=== PATIENT | female | born 1970 | race Caucasian/White ===

== ENCOUNTER → 2017-10-12 12:50 | Outpatient (CLI) | payer MEDICAID ==
[2014-06-08 07:43] VITALS: BMI 19.1
[~2017-10-12 12:50] MED LIST: HYDROCODONE-APA1 TAB PO; NAPRELAN375 MG PO
--- NOTE | 2017-10-21 15:46 | EC ---
PATIENT:ESTELLA RAIN DATE OF SERVICE: 10/12/17 SEX: F MEDICAL RECORD: [id number] DATE OF : 66 LOCATION[facility] AGE OF PATIENT: 47 ADMISSION DATE: 10/12/17 REFERRING PHYSICIAN: INTERPRETING PHYSICIAN: SHANKAR MCNEIL MD ECHOCARDIOGRAM REPORT ECHO CHARGES 4 ECHO COMPLETE CLINICAL DIAGNOSIS: LUNG CANCER/HTN ECHOCARDIOGRAPHIC MEASUREMENTS (adult normal given) AC root (d.<3.7cm) 3.0 cm LV Septum d (<1.2 cm> 1.5 cm Valve Excursion 2.0 cm LV Septum (systole) 1.8 cm Left Atria (s.<4.0cm> 3.2 cm LVPW d(<1.2cm) 1.3 cm RV (d.<2.3cm) 2.3 cm LVPW (sytole) 2.0 cm LV diastole(<5.6CM) 4.2 cm MV E-F(>70mm/sec) cm LV systole 1.9 cm LVOT Diameter 1.6 cm MV exc.(>10mm) cm Est.ejection fraction (50-75%) % Pericardial Effusion Y DOPPLER: LVIT cm/sec A 91.0 cm/sec E 50.0 cm/sec LA cm/sec RVSP 35.0 mmHg LVOT 120 cm/sec AOP1/2T m/s Asc. Ao 149 cm/sec RVOT 64.0 cm/sec RA cm/sec PA 117 cm/sec AV Gradient Peak 8.8 mmHg AV Mean 3.9 mmHg AV Area 1.6 cm MV Gradient Peak 3.3 mmHg MV Mean 1.2 mmHg MV Area cm COMMENTS: Wireless Internet Installer: 1 [employer] Officer: 1 Dr. Mcneil TAPE# PACS DATE OF SERVICE: 10/12/2017 FINDINGS: 1. Left ventricular chamber size is within normal limits. Left ventricular systolic function is normal. Overall ejection fraction estimated at 55%. 2. Left atrium, right atrium, and right ventricle chamber sizes are within normal limits. 3. Valvular structures have normal structure and motion. 4. Doppler interrogation reveals only trace mitral regurgitation, trace tricuspid regurgitation. No other valvular insufficiency or stenosis. ECHOCARDIOGRAM REPORT [id number] ESTELLA RAIN 5. No evidence of pericardial effusion or left ventricular thrombus. TRANSINT:[id number] Voice Confirmation ID: [id number] DOCUMENT ID: [id number] SHANKAR MCNEIL MD at 1546 CC: [id number] DICTATION DATE: 10/13/17 1129 COMMERCIAL LENDING ASSISTANT: 10/13/17 1140 DEP CLI 10/12/17 [place] [id number] [place] [id number]
== END | disposition home or self-care (01) ==
LOC: D.RT 09:00 → D.ECHO 10:35
DX: C34.90 Malignant neoplasm of unspecified part of unspecified bronchus or lung (principal); I10 Essential (primary) hypertension

== ENCOUNTER → 2018-01-04 17:46 | Outpatient (CLI) | payer MEDICAID ==
[2014-06-08 07:43] VITALS: BMI 19.1
== END | disposition home or self-care (01) ==
LOC: D.MAMMO 15:15
DX: Z12.31 Encounter for screening mammogram for malignant neoplasm of breast (principal)

== ENCOUNTER → 2018-09-02 12:26 | Outpatient (CLI) | payer MEDICAID ==
[2014-06-08 07:43] VITALS: BMI 19.1
== END | disposition home or self-care (01) ==
LOC: D.MRI 12:00
DX: C34.12 Malignant neoplasm of upper lobe, left bronchus or lung (principal); T50.995A Adverse effect of other drugs, medicaments and biological substances, initial encounter

== ENCOUNTER 2019-10-17 23:24 | Inpatient (IN) | payer MEDICAID ==
[~2019-10-17] VITALS: Ht 165.1 cm; Wt 50.3 kg
[2019-10-17 23:57] LABS: HEMATOCRIT 41.5 % (36.0-48.0); MCH 24.9 pg (26.0-34.0); MCHC 31.3 g/dL (31.0-37.0); MCV 79.5 fL (80.0-100.0); MEAN PLATELET VOLUME 8.9 fL (7.4-10.4); NEUTROPHILS 86.5 % (40-80); RBC 5.22 10x6/uL (4.00-5.40); RDW 15.8 % (11.5-14.5); WBC 18.2 10x3/uL (4.8-10.8)
[2019-10-17 23:58] LABS: PLATELET COUNT 499 10x3/uL (130-400)
--- NOTE | 2019-10-18 00:23 | NUR ---
PT ASSISTED WITH BEDPAN. URINE SPECIMEN SENT TO LAB
[2019-10-18 00:31] LABS: ALBUMIN 3.3 g/dL (3.4-5.0); ALKALINE PHOSPHATASE 131 U/L (46-116); ALT (SGPT) 30 U/L (10-68); AMYLASE - SERUM 52 U/L (25-115); BILIRUBIN - TOTAL 0.39 mg/dL (0.2-1.3); CALCIUM 9.4 mg/dL (8.5-10.1); CARBON DIOXIDE 33.8 mmol/L (21.0-32.0); CHLORIDE - SERUM 99 mmol/L (98-107); CKMB 1.2 U/L (0.0-3.6); CREATINE KINASE 43 UL (21-215); CREATININE - SERUM 0.8 mg/dL (0.6-1.3); GLUCOSE 148 mg/dL (74-106); LIPASE 166 U/L (73-393); MAGNESIUM - SERUM 2.1 mg/dL (1.8-2.4); POTASSIUM - SERUM 3.5 mmol/L (3.5-5.1); PROTEIN - SERUM 8.5 g/dL (6.4-8.2); SODIUM 140 mmol/L (136-145); eGFR NON AFRICAN AMERICAN 80 mL/min (90-120)
[2019-10-18 00:32] LABS: CALC OSMOLALITY 288 mosm/kg (275-300); TROPONIN-I < 0.017 ng/mL (0.000-0.060); UREA NITROGEN 31 mg/dL (7-18)
[2019-10-18 00:38] LABS: UDS - AMPHET POSITIVE QUAL (NEGATIVE); UDS - BARB NEGATIVE QUAL (NEGATIVE); UDS - BENZO NEGATIVE QUAL (NEGATIVE); UDS - COCAINE POSITIVE QUAL (NEGATIVE); UDS - OPIATE NEGATIVE QUAL (NEGATIVE); UDS - PCP NEGATIVE QUAL (NEGATIVE); UDS - THC POSITIVE QUAL (NEGATIVE)
[2019-10-18 00:40] LABS: APPEARANCE CLEAR (CLEAR); BILIRUBIN NEGATIVE (NEGATIVE); COLOR YELLOW (YELLOW); GLUCOSE NEGATIVE (NEGATIVE); KETONE NEGATIVE (NEGATIVE); NITRITE NEGATIVE (NEGATIVE); PROTEIN NEGATIVE (NEGATIVE); SPECIFIC GRAVITY 1.015 (1.005-1.020); UROBILINOGEN NORMAL (NORMAL)
[2019-10-18 00:41] LABS: BACTERIA FEW /hpf (NEGATIVE); EPITHELIAL CELLS 0-5 /hpf (0-5); RED CELLS - URINE 0-5 /hpf (0-5); WHITE CELLS - URINE 0-5 /hpf (NEGATIVE)
--- NOTE | 2019-10-18 02:10 | NUR ---
RECIEVED REPORT FROM ORLANDO MENJIVAR. PT ARRIVE BY BED. VSS, AAOX4, PT APPEARS TO NAUSEATED, WITH FREQUENT VOMITING. EMESIS BAG PROVIDED. PT PLACED ON TELEMETRY, 100 SINUS TACH, PT IS BEDFAST AT THIS TIME. STATES SHE USES WHEELCHAIR @ HOME. IV METRONIDAZOLE INFUSING ON ARRIVAL TO THE UNIT. NS INFUSING @ 75. PT IS A GOOD HISTORIAN. PT DENIES ANY FURTHER NEEDS AT THIS TIME. WILL CPOC. CL WITHIN REACH, BED IN LOWEST POSITION, SR UP X2.
[2019-10-18 02:14] VITALS: BP 117/87; BMI 18.5
--- NOTE | 2019-10-18 02:51 | NUR ---
ER NURSE TIARA CALLED AND READ RESULT OF CT OF THE ABD. CALLED AND NOTIFIED OSMANY PRICE ABOUT RESULT AND IF TO START NASOGATRIC SUCTION OR NOT. HE STATES TO CPOC AND WAIT ON DR. GARRETT FOR THE NEXT POC. PT STILL NAUSEATED AT THIS TIME. ZOFRAN INFUSING AT 4.7MLS/HR. LEVOFLOXACIN ALSO INFUSING AT THIS TIME. WILL CPOC.
--- NOTE | 2019-10-18 02:56 | NUR ---
TIARA PERRY CALLED AND STATED THAT DR. MCKEE SPOKE WITH DR. GARRETT AND DR GARRETT STATES TO PLACE PT ON NG TUBE WITH LOW INTERMITTENT SUCTION.
--- NOTE | 2019-10-18 03:45 | NUR ---
NG TUBE PLACED. ORDERED ABD X-RAY FOR NG TUBE PLACEMENT.
--- NOTE | 2019-10-18 03:46 | NUR ---
NG-TUBE PLACE VIA RIGHT NOSTRIL. PT TOLERATE MODERATELY NOT S/S OF BLEEDING NOTED. ABDOMINAL AUSCULTATION PERFORMED. NG-TUBE SECURED WITH TAPE ON PT'S NOSE.
[2019-10-18 05:00] LABS: BASOPHILS 0.1 % (0-2); EOSINOPHILS 0.7 % (0-7); HEMATOCRIT 36.3 % (36.0-48.0); HEMOGLOBIN 11.6 g/dL (12-16); IMMATURE GRANULOCYTES 0.3 % (0-5); LYMPHOCYTES 10.8 % (15-50); MCH 25.3 pg (26.0-34.0); MCV 79.3 fL (80.0-100.0); MONOCYTES 7.2 % (2-11); NEUTROPHILS 80.9 % (40-80); PLATELET COUNT 430 10x3/uL (130-400); RBC 4.58 10x6/uL (4.00-5.40); RDW 15.8 % (11.5-14.5)
[2019-10-18 05:08] LABS: WBC 13.4 10x3/uL (4.8-10.8)
[2019-10-18 05:17] LABS: CALC OSMOLALITY 289 mosm/kg (275-300); CALCIUM 8.3 mg/dL (8.5-10.1); CARBON DIOXIDE 31.6 mmol/L (21.0-32.0); CHLORIDE - SERUM 103 mmol/L (98-107); CREATININE - SERUM 0.8 mg/dL (0.6-1.3); GLUCOSE 175 mg/dL (74-106); PHOSPHOROUS 3.2 mg/dL (2.5-4.9); POTASSIUM - SERUM 3.3 mmol/L (3.5-5.1); SODIUM 141 mmol/L (136-145); UREA NITROGEN 27 mg/dL (7-18); eGFR NON AFRICAN AMERICAN 80 mL/min (90-120)
--- NOTE | 2019-10-18 05:17 | NUR ---
RECIEVED REPORT FROM RADIOLOGY THAT NG TUBE IS AT THE GASTROESOPHAGEAL JUNCTION. CALLED AND NOTIFIED DEE ZARAGOZA PT'S LACK OF TOLERANCE TO NG TUBE AND ALSO ABOUT LOCATION OF NG-TUBE. HE STATES TO PUSH 3-4ML FURTHER AND ENCOURAGE PT TO KEEP THE NG-TUBE. PT PLACED ON BED RODGERS AT THIS TIME. BM IS SCANTY DIARRHEA, PT STATES SHE IS STRAINING BUT NOTHING IS COMING OUT AND HER STOMACH HURTS.
--- NOTE | 2019-10-18 07:20 | NUR ---
RECIEVE REPORT. ALERT AND ORIENTED X4. SITTING UP IN BED. NG TUBE HOOKED TO INTERMITTENT LOW WALL SUCTION. SECRETIONS CLOUDY YELLOW. DENIES ANY NEEDS AT THIS TIME. CONTINUE PLAN OF CARE AND SAFETY PRECAUTIONS.
[2019-10-18 08:16] VITALS: BP 97/67
[2019-10-18 11:01] VITALS: Ht 165.1 cm; Wt 50.3 kg
[2019-10-18 12:11] VITALS: BP 117/82
--- NOTE | 2019-10-18 14:00 | NUR ---
ALERT AND ORIENTED X4. DEMANDING NG TUBE TO BE REMOVED. PATIENT STATES,"IF YOU AREN'T GOING TO GIVE ME ANYTHING ELSE FOR PAIN AND SOMETHING TO EAT THEN I'M LEAVING." EXPLAIN WAITING FOR MEDICATION TO TAKE AFFECT FOR BOWEL MOVEMENT. PATIENT STATES, "I KNOW BUT I CAN HURT AT HOME." EXPLAIN DOCTORS WILL NOT DISCHARGE AND LEAVING AMA INSURANCE WILL NOT PAY. PATIENT STATES, "I KNOW AND I DON'T CARE GIVE ME THE PAPERS TO SIGN, I'M LEAVING." DC NGT TUBE TIP INTACT. FLUSH RT CHEST IP. DC RT CHEST IP TIP INTACT. TAKEN TO ER ENTERANCE TO WAIT FOR CARD DOFFER. AMA PAPERS SIGNED ON CHART. OSMANY GRANT AND NOTIFIED BEFORE LEAVING UNIT.
--- NOTE | 2019-10-18 17:02 | MORECARE ---
CASE MANAGEMENT DISCHARGE SUMMARY PATIENT: ESTELLA RAIN UNIT: [id number] ADM DATE: 10/18/19 AGE: 49 : 66 SEX: F ROOM/BED: D.2587 AUTHOR: TALIA HOOKER PHYSICIAN: REFERRING PHYSICIAN: ARJUN MILTON MD DATE OF SERVICE: 10/18/19 Discharge Plan Patient Name: ESTELLA RAIN Facility: [facility]:[place] : 1970 Planned Disposition: Left Against Medical Advice Anticipated Discharge Date: 10/18/19 Discharge Date: 10/18/2019 Expected LOS: 1 Initial Reviewer: [email or web address] Initial Review Date: 10/18/2019 Generated: 10/18/19 6:01 pm Patient Name: ESTELLA RAIN Page [id number] at 1702 All edits/amendments must be made on the electronic document DICTATION DATE: 10/18/191700 OPERATIONS SUPERINTENDENT: CARLOS EDUARDO 10/18/191700 RPT#: [id number] DC DATE:10/18/19 STATUS: DIS IN [facility] [address] [place] [address] END OF REPORT
== END 2019-10-18 14:10 | disposition left against medical advice (07) | DRG 815 ==
LOC: D.ER 23:24 → D.M2 10-18 01:18 → OBSVTIME 10-18 01:18 → D.M2 10-18 10:57
PROVIDERS: Family Medicine; ADMIT Internal Medicine Nephrology; ATTEND Internal Medicine Nephrology
DX: D72.829 Elevated white blood cell count, unspecified (principal); C34.90 Malignant neoplasm of unspecified part of unspecified bronchus or lung; N17.9 Acute kidney failure, unspecified; F17.213 Nicotine dependence, cigarettes, with withdrawal; R10.9 Unspecified abdominal pain; D64.9 Anemia, unspecified; E87.6 Hypokalemia; F19.10 Other psychoactive substance abuse, uncomplicated

== ENCOUNTER 2020-06-10 08:45 | Inpatient (IN) | payer MEDICAID ==
[~2020-06-10] VITALS: Ht 165.1 cm; Wt 44.5 kg
[2020-06-10] VITALS (15 sets, daily range): BP systolic 76–124; BP diastolic 36–86; Ht 165.1 cm; Wt 44.5 kg
--- NOTE | 2020-06-10 09:20 | NUR ---
PT REFUSED IV, BUT DID LET US GET ONE AND STATED "GET BLOOD WITH IT" SHE ALSO REFUSED TO BE INTUBATED BY DR VALDIVIA STATED "I DON'T WANT IT" SHE WAS TOLD IT WAS LIFE OR AND STILL REFUSED. PHONE CALL TO TRY AND REACH CHILDREN IN PROCESS.
--- NOTE | 2020-06-10 09:40 | NUR ---
PT MOVED TO ROOM 1 FOR NEG PRESSURE.
--- NOTE | 2020-06-10 09:41 | NUR ---
SPOKE TO SISTER, SHE IS ON HER WAY UP HERE TO TALK TO PATIENT AND LET HER KNOW JUST HOW SICK SHE IS.
[2020-06-10 10:06] LABS: CALC OSMOLALITY 284 mosm/kg (275-300); CALCIUM 8.8 mg/dL (8.5-10.1); CARBON DIOXIDE 32.7 mmol/L (21.0-32.0); CHLORIDE - SERUM 103 mmol/L (98-107); CREATININE - SERUM 0.5 mg/dL (0.6-1.3); GLUCOSE 164 mg/dL (74-106); POTASSIUM - SERUM 4.1 mmol/L (3.5-5.1); SODIUM 139 mmol/L (136-145); UREA NITROGEN 21 mg/dL (7-18); eGFR NON AFRICAN AMERICAN > 90 mL/min (90-120)
[2020-06-10 10:07] LABS: BASOPHILS 0.2 % (0-2); EOSINOPHILS 0.7 % (0-7); HEMATOCRIT 37.4 % (36.0-48.0); IMMATURE GRANULOCYTES 0.3 % (0-5); LYMPHOCYTES 6.6 % (15-50); MCH 28.8 pg (26.0-34.0); MCHC 32.1 g/dL (31.0-37.0); MCV 89.9 fL (80.0-100.0); MEAN PLATELET VOLUME 9.1 fL (7.4-10.4); MONOCYTES 7.1 % (2-11); NEUTROPHILS 85.1 % (40-80); PLATELET COUNT 343 10x3/uL (130-400); RBC 4.16 10x6/uL (4.00-5.40); RDW 13.9 % (11.5-14.5); WBC 14.9 10x3/uL (4.8-10.8)
--- NOTE | 2020-06-10 10:10 | NUR ---
PT REFUSED TO LET RESPIRATORY PUT BI PAP ON HER SHE DOES NOT WANT IT. NON REBREATHER STILL IN PLACE O2 SAT AT 99% ON 15 LITERS.
[2020-06-10 10:22] LABS: ALBUMIN 2.5 g/dL (3.4-5.0); ALKALINE PHOSPHATASE 106 U/L (30-120); ALT (SGPT) 19 U/L (10-68); BILIRUBIN - TOTAL 0.17 mg/dL (0.2-1.3); CKMB 5.6 U/L (0.0-3.6); CREATINE KINASE 84 UL (21-215); PROTEIN - SERUM 7.2 g/dL (6.4-8.2)
[2020-06-10 10:23] LABS: TROPONIN-I < 0.017 ng/mL (0.000-0.060)
--- NOTE | 2020-06-10 10:31 | NUR ---
PT HAS REFUSED TO WEAR THE NON REBREATHER EVEN THOUGH I TOLD HER HER OXYGEN WAS MUCH BETTER AT 96-00% ON THE NON REBREATHER, SHE WANTS A NASAL CANNULA SO RESPIRATORY PUT HER ON HIGH FLOW NC AND HER SATS ARE NOW SITTING IN THE 85-87% RANGE. SHE STILL REFUSES TO DO ANYTHING ELSE OR GIVE URINE OR HAVE CATHETER FOR IN AND OUT USE.
--- NOTE | 2020-06-10 10:42 | NUR ---
WENT TO CHECK ON PT SHE IS LETHARGIC I PUT HER BACK ON THE NON REBREATHER AND CALLED RESPIRATORY TO SEE IF WE CAN GET HER ON THE BIPAP NOW. hER SAT WAS 80% SHE IS UP TO 96% ON THE NRB MASK. UNABLE TO OBTAIN DNR STATUS FROM PATIENT. VS RECORDED IN CHART.
--- NOTE | 2020-06-10 10:54 | NUR ---
SISTER IS AT THE BEDSIDE PT IS UNRESPONSIVE, DR VALDIVIA AT BEDSIDE PT IS CHEYNNE FLEMING BREATHING, O2 SAT AT 97% WE HAVE PUT HER ON THE BIPAP WITH RESPIRATORY AT BEDSIDE WELL. SHE IS TOLERATING WELL AND STILL UNRESPONSIVE. DR VALDIVIA IS DISCUSSING SITUATION WITH HER SISTER WHILE DR GUY JUST WALKED INTO THE ROOM WELL.
[2020-06-10 10:56] LABS: APTT 24.1 SECONDS (22.8-39.4); INR 1.05 (0.85-1.17); PROTIME 13.7 SECONDS (11.6-15.0)
--- NOTE | 2020-06-10 11:34 | NUR ---
SISTER AT BEDSIDE RESPIRATORY IN ROOM DOING ANOTHER SET OF ABG'S, PT IS STILL UNRESPONSIVE AND RADU FLEMING BREATHING PATTERN, O2 SAT AT 94-95% BP 84/36.
--- NOTE | 2020-06-10 12:25 | NUR ---
LEVOPHED INCREASED TO 6MCG/HR, BP 96/42.
--- NOTE | 2020-06-10 12:39 | NUR ---
INCREASED LEVOPHED UP TO 7MCG/HR BP 103/40
--- NOTE | 2020-06-10 12:53 | NUR ---
LEVOPHED INCREASED TO 8MCG/HR BP 76/49
--- NOTE | 2020-06-10 13:12 | NUR ---
PER ORDER FROM DR VALDIVIA TITRATE LEVOPHED BY 2MCG EVERY 5 MIN TO GET MAP TO 60. INCREASED FRO M8MCG TO 10MCG BLOOD PRESSURE AT 86/43
--- NOTE | 2020-06-10 13:40 | NUR ---
PER SHANKAR BATEMAN, HE UPPED HER LEVOPHED TO 15MCG/HR, AND STARTED HER NEXT BOLUS.BP 89/56
--- NOTE | 2020-06-10 13:52 | NUR ---
REPORTED UPDATED STATUS TO DR GUY, HE STATED HE WROTE ORDER FOR SOLUMEDROL AND ANOTHER MDI. NOTED
--- NOTE | 2020-06-10 14:40 | NUR ---
RECEIVED PT FROM ER VIA STRETCHER TO ROOM 2314 DUE TO COVID PUI. PT ALERT ENOUGH TO ANSWER QUESTIONS APPROPRIATELY, PT STATES "DO NOT INTUBATE ME", PT ALSO STATES "I WANT TO AT HOME, LET ME AT HOME" NOTIFIED OF WHAT PT SAID. THEN SPOKE WITH PT AND PT IS NOW HOSPICE. WILL CONT TO MONITOR.
--- NOTE | 2020-06-10 15:00 | NUR ---
GABRIEL INSERTED. NO ACUTE NEEDS OR DISTRESS NOTED AT THIS TIME.
--- NOTE | 2020-06-10 15:15 | NUR ---
PT RIPPED OFF BIPAP AND SAID "GET THIS OFF OF ME, LET ME GO HOME AND " PUT PT ON NONR AT 13L SATING 96%. PT ALERT ENOUGH TO PUT MASK ON AND TAKE MASK OFF WHEN INSTRUCTED TO DO SO.
--- NOTE | 2020-06-10 16:56 | MORECARE ---
CASE MANAGEMENT DISCHARGE SUMMARY PATIENT: ESTELLA RAIN UNIT: [id number] ADM DATE: 06/10/20 AGE: 50 : 66 SEX: F ROOM/BED: D.2314 AUTHOR: TALIA HOOKER PHYSICIAN: REFERRING PHYSICIAN: ADOLFO GUY DO DATE OF SERVICE: 06/10/20 Discharge Plan Patient Name: ESTELLA RAIN Facility: [facility]:[place] : 1970 Planned Disposition: Anticipated Discharge Date: Discharge Date: Expected LOS: Initial Reviewer: [email or web address] Initial Review Date: 06/10/2020 Generated: 06/10/20 5:55 pm Comments DCP- Discharge Planning Updated by [email or web address]: Tayla Howard on 06/10/20 3:[address] CM WAS ASKED TO SET UP HOSPICE FOR PT. BENJAMIN KOLB STATED THAT THE PATIENT IS REQUESTING TO GO HOME AND WITH HOSPICE. CM ASKED WHAT COMPANY PATIENT WOULD LIKE TO USE. CM CALLED [facility] AND SPOKE WITH THE ONCALL NURSE TERRI. CM PROVIDED CLINICAL UPDATE AND PRINTED OUT CLINICALS PER REQUEST. CM PROVIDED UPDATE TO RN AND DR GUY. CM WILL CONTINUE TO ASSIST NEEDED. TAYLA HOWARD MSN,RN,CM External Providers External Provider: [facility] Next Contact Date: Service Request Date: Service Type: Resolution: Reviewer: Comments: Patient Name: ESTELLA RAIN Page [phone] at 1656 All edits/amendments must be made on the electronic document DICTATION DATE: 06/10/201654 CHIEF INSPECTOR: CARLOS EDUARDO 06/10/20 165 RPT#: [id number] DC DATE: STATUS: ADM IN [facility] [address] [place] [address] END OF REPORT
--- NOTE | 2020-06-10 17:00 | NUR ---
SPOKE WITH JOSS FROM [facility], UPDATE GIVEN. WILL CONT TO MONITOR.
--- NOTE | 2020-06-10 17:29 | NUR ---
ON THE PHONE WITH SUNITA MENSAH, GIVEN UPDATE. PT GOING ON HOSPICE AND WILL BE GOING HOME TOMORROW ON HOSPICE. WILL TRANFER PT TO THE FLOOR. WILL CONT TO MONITOR.
--- NOTE | 2020-06-10 18:24 | NUR ---
PT COVID NEGATIVE.
--- NOTE | 2020-06-10 18:51 | NUR ---
PT HAS VERBALIZED MANY TIMES THAT SHE WISHES TO LEAVE AND GO HOME ABUNDIO, CHARGE NURSE NOTIFIED.
--- NOTE | 2020-06-10 20:05 | NUR ---
PT HAS CONTINUED TO YELL OUT OF ROOM SINCE COMING ON SHIFT THAT SHE WANTS TO GO HOME, PATIENT AWAKE ALERT AND ORIENTED AT THIS TIME. OFF GOING NURSE REPORTED PER DR GUY THAT THE PATIENT CAN TRANSFER TO THE MEDICAL FLOOR AND START HOSPICE OR THE PATIENT CAN LEAVE AGAINST MEDICAL ADVICE. HOSPICE WAS CONTACTED DURING THE PREVIOUS SHIFT TO START HOSPICE CARE AT HOME FOR THE PATIENT. OFF GOING RN REPORTED NAME AND CONTACT NUMBER FOR HOSPICE ONCE THE PATIENT IS TRANSFERRED TO THE MEDICAL FLOOR. PATIENT IS REFUSING MEDICAL CARE AT THIS TIME. SHE DOES NOT WANT TO TRANSFER TO ANOTHER ROOM. CALLED THEOLOGY PROFESSOR LINE AT THIS TIME AND SPOKE WITH DR. ASA BARR. ORDERS RECEIVED TO DISCHARGE THE PATIENT AT THIS TIME.
--- NOTE | 2020-06-10 20:21 | NUR ---
CONTACTED HOSPICE CONTACT AT THIS TIME TO UPDATE ON PATIENT STATUS. HE VERBALIZED THAT HE HAS CONTACT INFORMATION FOR THE SISTER AND THEY CAN COMPLETE THE HOSPICE ADMISSIONS PROCESS WITH THE FAMILY. NOTHING FURTHER IS NEEDED FROM THIS FACILITY AT THIS TIME.
--- NOTE | 2020-06-10 21:23 | NUR ---
UPDATED PATIENT TO SITUATION IT HAS EVOLVED, SISTER IS NOT GOING TO COME AND GET HER AT THIS TIME BECAUSE SHE DOES NOT BELIEVE THAT THE PATIENT SHOULD COME HOME WITH NO UNLOADER, EXPLAINED TO PATIENT HER OPTIONS OF LEAVING AGAINST MEDICAL ADIVCE OR STAYING OVERNIGHTUNTIL HOSPICE CAN EVALUATE HER. PT IS OPTING FOR MEDICAL TREATMENT AT THIS TIME IN ORDER FOR CASE MANAGEMENT AND HOSPICE TO MAKE BETTER DISCHARGE ARRANGEMENTS FOR HER.
--- NOTE | 2020-06-10 21:35 | NUR ---
RT AT BEDSIDE, ATTEMPT TO PLACE PATIENT ON BIPAP , PATIENT NON COMPLIANT. PATIENT AAO X3 - SHE AGREES TO STAY AT THIS FACILITY OVERNIGHT FOR CASE MANAGEMENT TO MAKE ARRANGEMENTS HOWEVER SHE REFUSES BIPAP MACHIENE. THIS NURSE ASKED THE PATIENT IF SHE UNDERSTANDS WHAT WILL HAPPEN TO HER IF SHE DOES NOT COMPLY. PT STATED SHE IS AWARE OF THE RISKS. PT STATES "I WILL " UPDATED FAMILY AND WELDING MACHINE OPERATOR HELPER ARC AT THIS TIME. PATIENT WILL REMAIN IN ICU DUE TO INEVITABLE DETERORIATION.
--- NOTE | 2020-06-10 22:17 | NUR ---
PAGED FAMILY PRACTICE AT THIS TIME ORDERS RECEIVED FOR COMFORT MEASURES ONLY, FAMILY IS AWARE AND AGREES WITH PLAN OF CARE DUE TO PATIENT REFUSING BIPAP WHILE AWAKE ALERT AND ORIENTED
[2020-06-11 03:00] VITALS: BP 111/71
[2020-06-11 07:00] VITALS: BP 118/70
--- NOTE | 2020-06-11 07:30 | NUR ---
REPORT RECEIVED. PT ON SIMPLE MASK AT 3L. PT VERBALIZED TO STAFF THAT SHE WISHED TO STOP CARE. DURING THE NIGHT, THEY MADE PT COMFORT CARE. WAITING ON CASE MANAGEMENT TO SEE ABOUT GETTING INPATIENT HOSPICE. WILL GIVE ORDERED MEDICATIONS TO TRY TO MAKE PT COMFORTABLE.
[2020-06-11 08:00] VITALS: BP 111/68
--- NOTE | 2020-06-11 08:55 | NUR ---
PT LOST HEARTBEAT AND STOPPED BREATHING. FELT NO PULSE.
--- NOTE | 2020-06-11 09:10 | NUR ---
PAGED ON-CALL DOCTOR TO COME PRONOUNCE.
--- NOTE | 2020-06-11 09:31 | NUR ---
DR BANKS CALLED BACK AND SAID DR LEE WOULD BE ROUNDING IN ICU. CALLED DR LEE. HE STATED HE WOULD BE HERE IN A LITTLE WHILE TO PRONOUNCE.
--- NOTE | 2020-06-11 09:41 | NUR ---
SPOKE WITH JIE AT [facility]. STATED HE WOULD PASS THIS INFORMATION TO THEM AND TO EXPECT A CALL FROM THEM SOON.
--- NOTE | 2020-06-11 09:49 | NUR ---
CALLED CHRONOGRAPH OPERATOR'S OFFICE. HEALTH CARE RECRUITER SAID SHE WOULD HAVE CHRONOGRAPH OPERATOR CALL ME BACK.
--- NOTE | 2020-06-11 10:30 | NUR ---
[facility] MORTEM CARE PROVIDED.
--- NOTE | 2020-06-11 11:45 | NUR ---
FAMILY AT BEDSIDE. SIGNED FOR BELONGINGS. HOME PICKED. [facility]. NOTIFIED AND STATED THEY WOULD BE UP HERE PICKING UP PT SOON.
--- NOTE | 2020-06-11 14:04 | MORECARE ---
CASE MANAGEMENT DISCHARGE SUMMARY PATIENT: ESTELLA RAIN UNIT: [id number] ADM DATE: 06/10/20 AGE: 50 : 66 SEX: F ROOM/BED: D.2314 AUTHOR: TALIA HOOKER PHYSICIAN: REFERRING PHYSICIAN: ADOLFO GUY DO DATE OF SERVICE: 06/11/20 Discharge Plan Patient Name: ESTELLA RAIN Facility: [facility]:[place] : 1970 Planned Disposition: Anticipated Discharge Date: Discharge Date: 06/11/2020 Expected LOS: Initial Reviewer: [email or web address] Initial Review Date: 06/10/2020 Generated: 06/11/20 3:03 pm Comments DCP- Discharge Planning Updated by [email or web address]: Tayla Howard on 06/10/20 3:[address] CM WAS ASKED TO SET UP HOSPICE FOR PT. BENJAMIN KOLB STATED THAT THE PATIENT IS REQUESTING TO GO HOME AND WITH HOSPICE. CM ASKED WHAT COMPANY PATIENT WOULD LIKE TO USE. CM CALLED [facility] AND SPOKE WITH THE ONCALL NURSE TERRI. CM PROVIDED CLINICAL UPDATE AND PRINTED OUT CLINICALS PER REQUEST. CM PROVIDED UPDATE TO RN AND DR GUY. CM WILL CONTINUE TO ASSIST NEEDED. TAYLA HOWARD MSN,RN, Last DP export: 06/10/20 3:56 p Patient Name: ESTELLA RAIN Page [id number] at 1404 All edits/amendments must be made on the electronic document DICTATION DATE: 06/11/20 140 GROCERY SACKER: CARLOS EDUARDO 06/11/20 1403 RPT#: [id number] DC DATE:06/11/20 STATUS: DIS IN [facility] [address] [place] [address] END OF REPORT
== END 2020-06-11 13:10 | DRG 193 ==
LOC: D.ER 08:45 → D.ICU 12:57
PROVIDERS: Family Medicine; ADMIT Family Medicine; ATTEND Family Medicine
DX: J18.9 Pneumonia, unspecified organism (principal); J96.91 Respiratory failure, unspecified with hypoxia; J96.92 Respiratory failure, unspecified with hypercapnia; R40.2223 Coma scale, best verbal response, incomprehensible words, at hospital admission; I10 Essential (primary) hypertension; Z85.118 Personal history of other malignant neoplasm of bronchus and lung; R40.2133 Coma scale, eyes open, to sound, at hospital admission; R40.2353 Coma scale, best motor response, localizes pain, at hospital admission